=== PATIENT | female | born 1995 | race Caucasian/White ===

== ENCOUNTER 2023-12-12 20:56 | Emergency (ER) | payer BC ==
[~2023-12-12] VITALS: Ht 154.9 cm; Wt 73.0 kg
[2023-12-12 21:01] VITALS: O2SAT 97
[2023-12-12 21:05] VITALS: BP 135/89; PULSE 76; RESP 16; TEMP 37.05852; O2SAT 97
[2023-12-12] MEDS: LIDOCAINE HCL/PF 1% 10 MG/ML 5ML VIAL INFIL ONE (22:54)
[2023-12-12] MEDS: BACITRACIN ZINC OINT UDPKT TOP ONE (22:54)
== END 2023-12-12 23:40 | disposition home or self-care (01) ==
LOC: ER 20:56
DX: S61.213A Laceration without foreign body of left middle finger without damage to nail, initial encounter (principal); Z98.890 Other specified postprocedural states; W25.XXXA Contact with sharp glass, initial encounter; Y93.89 Activity, other specified; Y92.89 Other specified places as the place of occurrence of the external cause; Y99.8 Other external cause status
CPT/HCPCS: 99283; 73120; 12002; J3490